=== PATIENT | female | born 2000 | race Caucasian/White ===

== ENCOUNTER 2021-04-30 08:02 | Outpatient (CLI) | payer BC, SELFPAY ==
--- NOTE | ~2021-04-30 | US_ITS ---
EXAMINATION: US breast RT limited HISTORY: Palpable lump in the upper inner quadrant of the right breast TECHNIQUE: Limited right breast ultrasound is performed in the area of clinical concern. FINDINGS: There is no evidence of focal abnormal cystic or solid mass in the vicinity of the reported palpable abnormality of concern. IMPRESSION: No specific sonographic correlate is identified for the reported palpable abnormality of concern. Fur ther evaluation at this time should be based on clinical assessment. Continued follow-up physical exa mination is recommended. BI-RADS Category 1: Negative Reviewed, dictated and finalized at location A. OLOG[facility] NURSE IMPRESSION: No specific sonographic correlate is identified for the reported palpable abnor mality of concern. Further evaluation at this time should be based on clinical assessment. Continued follow-up physical examination is recommended. BI-RADS Category 1: Negative
== END 2021-04-30 08:03 ==
PROVIDERS: Visit Provider Nurse Practitioner
DX: N63.10 Unspecified lump in the right breast, unspecified quadrant (principal); N60.11 Diffuse cystic mastopathy of right breast
CPT/HCPCS: 76642

== ENCOUNTER 2021-05-20 21:14 | Emergency (ER) | payer BC, SELFPAY ==
--- NOTE | ~2021-05-20 | XR_ITS ---
EXAMINATION: XR chest 2V DATE: 05/21/2021 00:25 INDICATION: Cough. Shortness of breath. TECHNIQUE: Frontal and lateral views of the chest were obtained. COMPARISON: Chest 2 views 03/18/2017 FINDINGS: The chest demonstrates clear lungs without pneumonia, pleural effusion, or pneumothorax. Th e heart size is normal. IMPRESSION: 1. No acute cardiopulmonary disease. Reviewed, dictated and finalized at location A. PULLER
[2021-05-20 21:18] VITALS: BP 146/73; PULSE 94; RESP 18; TEMP 36.5; O2SAT 99
--- NOTE | 2021-05-20 23:37 | ED.URI ---
HPI - URI/Sore Throat General Chief Complaint: Upper Respiratory Infection Stated Complaint: cough Time Seen by Provider: 05/20/21 23:00 Source: patient History of Present Illness HPI Narrative: Patient presents with cough, congestion since Friday. Feel like her symptoms are getting worse and she notes mild pain with swallowing so she came to the ER for evaluation. Reports very mild shortness of breath has not noted any fevers. Reports she has not gotten the Covid vaccine. Pain in throat is sore, worse with swallowing, radiates down her neck. Has any abdominal pain nausea vomiting or diarrhea Related Data Home Medications Medication Instructions Recorded Confirmed No Home Medications 05/20/21 05/20/21 Allergies Allergy/AdvReac Type Severity Reaction Status Date / Time Sulfa (Sulfonamide Allergy Unknown Other Verified 05/20/21 21:22 Antibiotics) Review of Systems Review of Systems: CONSTITUTIONAL: Denies fever, chills, or sweats. EYES: Denies visual changes, redness, or discharge. ENT: Reports sore throat and congestion CARDIOVASCULAR: Denies chest pain, palpitations, or edema. RESPIRATORY: Cough and shortness of breath GASTROINTESTINAL: Denies abdominal pain, nausea, vomiting, or diarrhea. GENITOURINARY: Denies dysuria or hematuria. SKIN: Denies rash or itching. MUSCULOSKELETAL: Denies back pain, joint pain, or myalgia. NEUROLOGIC: Denies headache, numbness, dizziness, or weakness. PSYCHIATRIC: Denies anxiety or depression. All systems reviewed & are unremarkable except as noted in HPI and below PMFSH Past Medical History Medical History (Updated 05/21/21 @ 01:18 by Magnus Brito MD) Patient denies significant medical history Family History Family History Grandparent Family history of coronary artery disease Other Diabetes mellitus Social History Social History Smoking status: Never smoker Alcohol intake: never Exam Narrative: GENERAL: Well-appearing, well-nourished, and in no acute distress. HEAD: Normocephalic, atraumatic. EYES: PERRLA and EOMI. ENT: Nares clear, no rhinorrhea or epistaxis. Mucous membranes moist. Mild erythema in the posterior pharynx no uvula deviation NECK: Supple. No masses. No JVD CHEST: Clear to auscultation. No respiratory distress. No wheezes rales or rhonchi HEART: Regular rate and rhythm. No murmur heard. Normal peripheral pulses. ABDOMEN: Soft, nontender, nondistended, normal active bowel sounds. EXTREMITIES: Normal range of motion. No edema. SKIN: Warm, dry, no rash. NEURO: No focal deficits. Alert and oriented x3. PSYCH: Normal mood and affect. Course Reevaluation(s) Reevaluation #1: Patient is resting comfortably results and plan reviewed with patient. Patient comfortable outpatient plan. Date: 05/21/21 Time: 01:17 Vital Signs Vital signs: Vital Signs Temperature 36.5 C 05/20/21 21:18 Pulse Rate 94 05/20/21 21:18 Respiratory Rate 18 05/20/21 21:18 Blood Pressure 146/73 H 05/20/21 21:18 Pulse Oximetry 99 05/20/21 21:18 Temperature 36.5 C 05/20/21 21:18 Pulse Rate 86 05/21/21 02:06 Respiratory Rate 20 05/21/21 02:06 Blood Pressure 126/82 05/21/21 02:06 Pulse Oximetry 98 05/21/21 02:06 MDM - URI/Sore Throat MDM Narrative Medical decision making narrative: H&P as above, vss, pt looks clinically well, exam reassuring, labs unremarkable Covid test is pending, img without acute process, additional labs/img considered, symptomatic relief available as needed, on reevaluation pt continues to looks clinically well. Suspect viral infection, dns bacterial pneumonia, severe sepsis, severe dehydration. plan to tx/monitor as op w/ pcm f/u findings/plan discussed with pt, pt agree/comfortable with plan, return precautions given Lab Data Labs: Lab Results 05/20/21 Range/Units 23:31 SARS-CoV-2 RNA (R
[2021-05-21 02:06] VITALS: BP 126/82; PULSE 86; RESP 20; O2SAT 98
[2021-05-21 19:11] LABS: SARS-CoV-2 RNA PCR Negative
== END 2021-05-21 02:09 | disposition home or self-care (01) ==
PROVIDERS: Emergency Provider Emergency Medicine; PCP Family Medicine
DX: J06.9 Acute upper respiratory infection, unspecified (principal); Z20.822 Contact with and (suspected) exposure to COVID-19
CPT/HCPCS: 71046; 87081; 87804; 87880; 99283; C9803; U0003; U0005